=== PATIENT | male | born 1970 | race Caucasian/White ===

== ENCOUNTER 2020-02-22 13:50 | Emergency (ER) | payer MEDICAID ==
[~2020-02-22] VITALS: Ht 165.1 cm; Wt 77.3 kg
[2020-02-22] MEDS ORDERED: BACITRACIN 0.9 GM PACKET OINTMENT TP ONE (14:15)
[2020-02-22] MEDS ORDERED: PERTUSS(ACELL),DIPH,TET VAC/PF 0.5 ML VIAL IM ONE (14:15)
[2020-02-22] MEDS ORDERED: LIDOCAINE/PF 1% 5 ML VIAL INJ ONE (14:15)
[2020-02-22] MEDS ORDERED: IBUPROFEN 400 MG TABLET PO ONE (14:15)
[2020-02-22 15:00] VITALS: BP 132/85
== END 2020-02-22 15:16 | disposition home or self-care (01) ==
LOC: EMS 14:01
DX: S71.112A Laceration without foreign body, left thigh, initial encounter (principal); W25.XXXA Contact with sharp glass, initial encounter; Y93.39 Activity, other involving climbing, rappelling and jumping off; Y92.89 Other specified places as the place of occurrence of the external cause; Y99.8 Other external cause status
CPT/HCPCS: 12001; 90471; 90715; 99284; J2001